=== PATIENT | female | born 1990 | race Caucasian/White ===

== ENCOUNTER 2018-03-03 17:11 | Outpatient (CLI) | payer BC | END 2018-03-03 18:59 | disposition home or self-care (01) | LOC: OBT 17:11 → L-D 17:22 → OBT 18:59 | DX: O62.9 Abnormality of forces of labor, unspecified (principal); Z3A.40 40 weeks gestation of pregnancy | CPT/HCPCS: 76818 ==

== ENCOUNTER 2018-03-06 20:40 | Inpatient (IN) | payer BC ==
[2018-03-06] MEDS ORDERED: LACTATED RINGER'S 1,000 ML IV (22:06)
[2018-03-06] MEDS ORDERED: LIDOCAINE 1% (MPF) 30 ML INJ INJ (22:30)
[2018-03-06] MEDS ORDERED: METHYLERGONOVINE 0.2 MG INJ IM (22:30)
[2018-03-06] MEDS: DINOPROSTONE 10 MG VAG SUPP VAG (22:30)
[2018-03-06] MEDS ORDERED: CARBOPROST 250 MCG INJ IM (22:30)
[2018-03-06] MEDS ORDERED: OXYTOCIN 30 UNITS/LR 500 ML IV ×2 (22:30)
[2018-03-06] MEDS ORDERED: MISOPROSTOL 200 MCG TAB PR (22:30)
[2018-03-06] MEDS ORDERED: BUTORPHANOL 2 MG INJ IV ×2 (22:30)
[2018-03-06] MEDS: LACTATED RINGER'S 1,000 ML IV ×2 (22:31→23:51)
[2018-03-06] MEDS ORDERED: AMPICILLIN 2 GM/NS (PMX) 100 ML ×2 (23:23→23:25)
[2018-03-06] MEDS: AMPICILLIN 2 GM/NS (PMX) 100 ML IVPB (23:40)
[2018-03-07 00:48] LABS: ADD MAN DIFF? NO
[2018-03-07 00:50] LABS: WHITE BLOOD COUNT 11.9 10^3/ul (4.8-10.8)
[2018-03-07 00:50] LABS: BASOPHIL # 0.1 10^3/ul (0.0-0.1); BASOPHILS % 0.4 % (0.0-2.0); EOSINOPHILS # 0.1 10^3/ul (0.0-0.5); EOSINOPHILS % 0.8 % (0.0-7.0); HEMATOCRIT 31.2 % (37.0-47.0); HEMOGLOBIN 10.3 g/dl (12.0-16.0); LYMPHOCYTES # 2.1 10^3/ul (0.8-2.9); LYMPHOCYTES % 17.8 % (15.0-51.0); MEAN CORPUSCULAR HEMOGLOBIN 27.2 pg (29.0-33.0); MEAN CORPUSCULAR VOLUME 82.3 fl (82.0-101.0); MEAN PLATELET VOLUME 10.4 fl (7.4-10.4); MONOCYTES % 8.4 % (0.0-11.0); NEUTROPHIL # 8.5 10^3/ul (1.6-7.5); NEUTROPHILS % 71.3 % (39.0-77.0); PLATELET COUNT 300 10^3/UL (140-415); RED BLOOD COUNT 3.79 10^6/ul (4.20-5.40); RED CELL DISTRIBUTION WIDTH 14.5 % (11.5-14.5)
[2018-03-07 01:18] LABS: INR 0.89; PROTIME 12.1 Sec (11.9-14.9); PT RATIO 0.9
[2018-03-07 01:19] LABS: PARTIAL THROMBOPLASTIN TIME 26.3 Sec (25.0-35.0)
[2018-03-07 01:57] LABS: AMPHETAMINE/METHAMPHETAMINE Negative (NEGATIVE); BARBITURATES Negative (NEGATIVE); BENZODIAZEPINES Negative (NEGATIVE); CANNABINOIDS Negative (NEGATIVE); COCAINE Negative (NEGATIVE); OPIATES Negative (NEGATIVE)
[2018-03-07 02:00] LABS: HEPATITIS B SURFACE ANTIGEN NEGATIVE (NEGATIVE)
[2018-03-07] MEDS ORDERED: OXYTOCIN 30 UNITS/LR 500 ML IV ×3 (02:30→11:00)
[2018-03-07] MEDS ORDERED: CARBOPROST 250 MCG INJ IM ×2 (02:30→11:00)
[2018-03-07] MEDS ORDERED: METHYLERGONOVINE 0.2 MG INJ IM ×2 (02:30→11:00)
[2018-03-07] MEDS: LACTATED RINGER'S 1,000 ML IV ×3 (02:33→18:45)
[2018-03-07] MEDS: ONDANSETRON 4 MG INJ IV (02:35)
[2018-03-07] MEDS: CITRIC ACID/SODIUM CITRATE 15 ML CUP PO (02:35)
[2018-03-07] MEDS: FAMOTIDINE 20 MG INJ IV (02:35)
[2018-03-07] MEDS ORDERED: PHENYLephrine (100 MCG/ML) 5ML SYG ×2 (03:37→04:38)
[2018-03-07] MEDS ORDERED: OXYTOCIN 10 UNIT INJ (03:37)
[2018-03-07] MEDS ORDERED: BUPIVACAINE 0.75%/DEXT (SPINAL) 2 ML INJ (03:38)
[2018-03-07] MEDS ORDERED: morphine SULFATE/PF (10 MG/10 ML) INJ (03:38)
[2018-03-07] MEDS ORDERED: AMPICILLIN 1 GM/NS (PMX) 50 ML IVPB (04:00)
[2018-03-07] MEDS ORDERED: METOCLOPRAMIDE 10 MG INJ (04:41)
[2018-03-07] MEDS: OXYTOCIN 30 UNITS/LR 500 ML IV ×2 (05:24→06:19)
[2018-03-07] MEDS: CEFAZOLIN 2 GM/50 ML (PMX) 50 ML IV (05:24)
[2018-03-07] MEDS ORDERED: ONDANSETRON 4 MG INJ IV (05:30)
[2018-03-07] MEDS ORDERED: morphine 2 MG INJ IV (05:30)
[2018-03-07] MEDS ORDERED: NALOXONE (0.4 MG/ML) INJ IV (05:30)
[2018-03-07] MEDS: DIPHENHYDRAMINE 50 MG INJ IV (05:55)
[2018-03-07] MEDS ORDERED: OXYTOCIN 30 UNITS/LR 500 ML BAG IV (07:00)
[2018-03-07] MEDS ORDERED: MISOPROSTOL 200 MCG TAB PR (11:00)
[2018-03-07] MEDS: LANOLIN 7 GM TUBE TOP (12:23)
[2018-03-07] MEDS: KETOROLAC 30 MG INJ IV ×2 (15:30→22:16)
[2018-03-07] MEDS: SENNA/DOCUSATE NA (8.6MG/50MG) TAB PO (22:17)
[2018-03-07 22:23] LABS: RAPID PLASMA REAGIN NONREACTIVE (NR)
[2018-03-08] MEDS: LACTATED RINGER'S 1,000 ML IV ×2 (02:45→09:02)
[2018-03-08] MEDS: KETOROLAC 30 MG INJ IV (04:34)
[2018-03-08] MEDS: IBUPROFEN 600 MG TAB PO ×3 (05:22→17:50)
[2018-03-08] MEDS ORDERED: DIPHENHYDRAMINE 50 MG INJ IV (05:30)
[2018-03-08] MEDS ORDERED: ONDANSETRON 4 MG INJ IV (05:30)
[2018-03-08] MEDS ORDERED: ZOLPIDEM 5 MG TAB PO (05:30)
[2018-03-08] MEDS: OXYCODONE/ACETAMINOPHEN (5/325) TAB PO ×2 (08:12→17:50)
[2018-03-08] MEDS: SENNA/DOCUSATE NA (8.6MG/50MG) TAB PO ×2 (09:01→21:44)
[2018-03-08 11:11] LABS: ADD MAN DIFF? NO
[2018-03-08 11:13] LABS: BASOPHILS % 0.1 % (0.0-2.0); EOSINOPHILS # 0.1 10^3/ul (0.0-0.5); EOSINOPHILS % 0.4 % (0.0-7.0); HEMATOCRIT 28.1 % (37.0-47.0); HEMOGLOBIN 9.3 g/dl (12.0-16.0); LYMPHOCYTES # 1.6 10^3/ul (0.8-2.9); MEAN CORPUSCULAR HEMOGLOBIN 27.2 pg (29.0-33.0); MEAN CORPUSCULAR HGB CONC 33.1 g/dl (32.0-37.0); MEAN CORPUSCULAR VOLUME 82.2 fl (82.0-101.0); MEAN PLATELET VOLUME 9.7 fl (7.4-10.4); NEUTROPHIL # 11.5 10^3/ul (1.6-7.5); NEUTROPHILS % 80.4 % (39.0-77.0); PLATELET COUNT 254 10^3/UL (140-415); RED BLOOD COUNT 3.42 10^6/ul (4.20-5.40); RED CELL DISTRIBUTION WIDTH 14.7 % (11.5-14.5)
[2018-03-08 11:13] LABS: WHITE BLOOD COUNT 14.4 10^3/ul (4.8-10.8)
[2018-03-09] MEDS: IBUPROFEN 600 MG TAB PO ×3 (00:14→12:55)
[2018-03-09] MEDS: OXYCODONE/ACETAMINOPHEN (5/325) TAB PO ×3 (00:15→10:17)
[2018-03-09] MEDS: SENNA/DOCUSATE NA (8.6MG/50MG) TAB PO (10:17)
[2018-03-10] MEDS ORDERED: DIPHTH/TET/ACEL PERTUSS (ADULT) 0.5 ML VIAL IM* (09:00)
== END 2018-03-09 16:30 | disposition home or self-care (01) | DRG 766 ==
LOC: PP1 03-07 09:56 → L-D 20:40
PROVIDERS: Obstetrics & Gynecology
PROC: 10D00Z1 Extraction of Products of Conception, Low, Open Approach (ICD-10-PCS; principal; 2018-03-07)
DX: O48.0 Post-term pregnancy (principal); Z37.0 Single live birth; Z3A.40 40 weeks gestation of pregnancy; O76 Abnormality in fetal heart rate and rhythm complicating labor and delivery; O69.81X0 Labor and delivery complicated by cord around neck, without compression, not applicable or unspecified
CPT/HCPCS: 76815; 80307; 85025; 85610; 85730; 86592; 86850; 86900; 86901; 87340; 94760; 99464